=== PATIENT | male | born 1950 | race Caucasian/White ===

== ENCOUNTER 2018-07-04 13:04 | Inpatient (IN) | payer OTHER ==
[2018-07-04 15:58] VITALS: BMI 33.7
--- NOTE | 2018-07-04 18:47 | HP ---
CIWA Score Nausea/Vomitin-Mild Nausea/No Vomiting Muscle Tremors: 4-Moderate,w/Arms Extend Anxiety: 4-Mod. Anxious/Guarded Agitation: 1-Slight > Activity Paroxysmal Sweats: 2 Orientation: 0-Oriented Tacttile Disturbances: 0-None Auditory Disturbances: 0-None Visual Disturbances: 2-Mild Sensitivity Headache: 2-Mild CIWA-Ar Total Score: 16 - Admission Criteria OASAS Guidelines: Admission for Medically Managed Detox: Requires at least one of the followin. CIWA greater than 12 2. Seizures within the past 24 hours 3. Delirium tremens within the past 24 hours 4. Hallucinations within the past 24 hours 5. Acute intervention needed for co occurring medical disorder 6. Acute intervention needed for co occurring psychiatric disorder 7. Severe withdrawal that cannot be handled at a lower level of care (continued vomiting, continued diarrhea, abnormal vital signs) requiring intravenous medication and/or fluids 8. Patient presents the following: CIWA greater than 12 Admission Criteria Met: Admission criteria met Admission ROS S - HPI Allergies/Adverse Reactions: Allergies Allergy/AdvReac Type Severity Reaction Status Date / Time No Known Allergies Allergy Verified 07/04/18 18:10 History of Present Illness: patient here requesting detox from etoh use , reports 1/5 /day x 3-4 years, prior sobriety x 30 years , reports current symptoms as above , tremors if not drinking , starts drinking in the mornings upon awakening , + driving while intoxicated , denies DUI/ DWI / MVA . [facility] XAVI 0.03 , latest use this morning . utox : neg tobacco : denies PMHx / PSHx : bronchitis , DM , hTN Psych : depression , denies SI / HI Exam Limitations: Clinical Condition - Ebola screening Have you traveled outside of the country in the last 21 days: No Have you had contact with anyone from an Ebola affected area: No Have you been sick,other than usual withdrawal symptoms: No Do you have a fever: No - Review of Systems Constitutional: See HPI EENT: reports: Other (glasses- bifocals , denies dysphagia , own teeth) Respiratory: reports: Cough (reprots cough x 2 weeks) Cardiac: reports: No Symptoms Reported GI: reports: See HPI : reports: No Symptoms Reported Musculoskeletal: reports: Back Pain, Other (reports h/o spinal stenosis w/ neuropathy) Integumentary: reports: Rash (natalia UE / LE areas of ecchymosis) Neuro: reports: Numbness, Paresthesia (natalia feet), Pre-Existing Deficit, Tremors , Unsteady Gait Endocrine: reports: See HPI (DM on meds Metformin) Hematology: reports: Easy [place] Psychiatric: reports: Orientated x3, Depressed Patient History - Patient Medical History Hx Asthma: No Hx Chronic Obstructive Pulmonary Disease (COPD): No Hx Cardiac Disorders: No Hx Hypertension: Yes (on meds.) Hx Seizures: No Hx Diabetes: Yes (Type II) Hx Gastrointestinal Disorders: No Hx Genitourinary Disorders: No Hx Sexually Transmitted Disorders: No Hx Renal Disease (ESRD): No Hx Depression: Yes Hx Suicide Attempt: No Hx Schizophrenia: No - Patient Surgical History Past Surgical History: No - PPD History Previous Implant?: Yes Documented Results: Negative w/o proof Implanted On Prior [facility] Admission?: No - Smoking Cessation Smoking history: Former smoker Have you smoked in the past 12 months: No If you are a former smoker, when did you quit?: 30 yrs ago Hx Chewing Tobacco Use: No Initiated information on smoking cessation: No - Substances Abused Alcohol Route: Oral Frequency: Daily Amount used: fifth of rum Age of first use: 17 Date of Last Use: 07/04/18 Family Disease History - Family Disease History Family History: Denies Admission Physical Exam [facility] - Vital Signs Vital Signs: Vital Signs - 24 hr 07/04/18 15:53 Temperature 98.5 F Pulse Rate 112 H Respiratory 20 Rate Blood Pressure 133/73 - Physical General Appearance: Yes: Moderate Distress, Tremorous, Sweating, Anxious HEENTM: Yes: EOMI, Hearing grossly Normal, Normocephalic, Normal Voice Respiratory: Yes: Chest Non-Tender, Lungs Clear, Normal Breath Sounds Neck: Yes: No masses,lesions,Nodules, Trachea in good position Breast: Yes: Breast Exam Deferred Cardiology: Yes: Regular Rhythm, Regular Rate, S1, S2, Tachycardia Abdominal: Yes: Normal Bowel Sounds, Soft Genitourinary: Yes: Within Normal Limits Back: Yes: Normal Inspection Musculoskeletal: Yes: Back pain, Other (unsteady gait - staggering) Extremities: Yes: Normal Capillary Refill, Tremors Neurological: Yes: Fully Oriented, Alert, Motor Strength 5/5 Integumentary: Yes: Other (petechiae natalia UE / LE) - Diagnostic (1) Alcohol dependence Current Visit: Yes Status: Acute Qualifiers: Substance use status: in withdrawal BHS Breath Alcohol Content Breath Alcohol Content: 0.003 Urine Drug Screen - Results Drug Screen Negative: Yes
[2018-07-04] MEDS ORDERED: MAGNESIUM CITRATE 300 ML BOTTLE PO PRN (18:51)
[2018-07-04] MEDS ORDERED: IBUPROFEN 400 MG TABLET (FP) PO PRN (18:51)
[2018-07-04] MEDS ORDERED: MAG HYDROX/AL HYDROX/SIMETH 30 ML UNIT-DOSE CUP PO PRN (18:51)
[2018-07-04] MEDS ORDERED: P-EPHED 60MG/TRIPROLIDI 2.5MG TABLET PO PRN (18:51)
[2018-07-04] MEDS ORDERED: MAGNESIUM HYDROX 2400MG/30ML ORAL SUSPENSION 30 ML CUP PO PRN (18:51)
[2018-07-04] MEDS ORDERED: ACETAMINOPHEN 325 MG TABLET (FP) PO PRN (18:51)
[2018-07-04] MEDS ORDERED: chlordiazePOXIDE HCL 25 MG CAPSULE PO PRN (18:51)
[2018-07-04] MEDS ORDERED: MENTHOL/PHENOL 1 EACH UD MM PRN (18:51)
[2018-07-04] MEDS ORDERED: guaiFENesin/D-METHORPHAN HB 10 ML UNIT-DOSE CUPS PO PRN (18:51)
[2018-07-04] MEDS: THIAMINE HCL 100 MG TABLET (FP) PO SCH (22:14)
[2018-07-04] MEDS: MELATONIN 5 MG TABLETS PO PRN (22:15)
[2018-07-04] MEDS: chlordiazePOXIDE HCL 25 MG CAPSULE PO SCH (22:15)
[2018-07-04] MEDS ORDERED: cloNIDine HCL 0.1 MG TABLET PO ONE (23:08)
[2018-07-05] MEDS: chlordiazePOXIDE HCL 25 MG CAPSULE PO SCH ×4 (05:44→22:27)
[2018-07-05] MEDS: metFORMIN HCL 500 MG TABLET (FP) PO SCH (08:14)
[2018-07-05 09:55] LABS: HEMATOCRIT 32.7 % (35.4-49); HEMOGLOBIN 10.7 GM/dL (11.7-16.9); MCH 32.5 pg (25.7-33.7); MCHC 32.9 g/dl (32.0-35.9); MEAN CELL VOLUME 98.8 fl (80-96); MEAN PLT VOLUME 8.1 fl (7.5-11.1); PLATELET COUNT 96 K/MM3 (134-434); RDW 16.8 % (11.9-15.9); WHITE BLOOD COUNT 2.9 K/mm3 (4.0-10.0)
[2018-07-05] MEDS: PRENATAL VITAMINS W/ FOLIC ACID TABLET (FP) PO SCH (10:30)
[2018-07-05] MEDS: LOSARTAN POTASSIUM 50 MG TABLET (FP) PO SCH (10:30)
[2018-07-05] MEDS ORDERED: LOPERAMIDE HCL 2 MG CAPSULE PO PRN (10:34)
[2018-07-05 10:54] LABS: ALBUMIN 3.1 g/dl (3.4-5.0); ALK PHOS 79 U/L (45-117); ANION GAP 8 MMOL/L (8-16); BILIRUBIN,TOTAL 0.6 mg/dL (0.2-1); BLOOD UREA NITROGEN 16 mg/dL (7-18); CALCIUM 8.3 mg/dL (8.5-10.1); CHLORIDE 98 mmol/L (98-107); CO2 30 mmol/L (21-32); CREATININE 0.7 mg/dL (0.55-1.3); GLUCOSE,RANDOM 126 mg/dL (74-106); POTASSIUM 3.3 mmol/L (3.5-5.1); SGOT/AST 62 U/L (15-37); SGPT/ALT 48 U/L (13-61); SODIUM 137 mmol/L (136-145); TOT PROT 6.2 g/dl (6.4-8.2)
--- NOTE | 2018-07-05 14:13 | PN ---
[facility] CIWA - CIWA Score Nausea/Vomitin-No Nausea/No Vomiting (DIARRHEA) Muscle Tremors: 4-Moderate,w/Arms Extend Anxiety: 4-Mod. Anxious/Guarded Agitation: 4-Moderately Restless Paroxysmal Sweats: 1-Minimal Palms Moist Orientation: 0-Oriented Tacttile Disturbances: 0-None Auditory Disturbances: 0-None Visual Disturbances: 0-None Headache: 0-None Present CIWA-Ar Total Score: 13 BHS Progress Note (SOAP) Subjective: ANXIETY,TREMORS, IRRITABILITY, DIARRHEA. Objective: 07/05/18 14:11 Vital Signs 07/05/18 07/05/18 06:20 10:34 Temperature 96.8 F L 98.7 F Pulse Rate 83 104 H Respiratory 18 20 Rate Blood Pressure 155/82 172/83 H Laboratory Tests 07/05/18 07/05/18 07/05/18 05:42 08:00 08:00 WBC 2.9 L RBC 3.30 L Hgb 10.7 L Hct 32.7 L MCV 98.8 H MCH 32.5 MCHC 32.9 RDW 16.8 H Plt Count 96 L MPV 8.1 Sodium 137 Potassium 3.3 L Chloride 98 Carbon Dioxide 30 Anion Gap 8 BUN 16 Creatinine 0.7 Creat Clearance w eGFR > 60 POC Glucometer 111 Random Glucose 126 H Calcium 8.3 L Total Bilirubin 0.6 AST 62 H ALT 48 Alkaline Phosphatase 79 Total Protein 6.2 L Albumin 3.1 L RPR Titer 07/05/18 08:00 WBC RBC Hgb Hct MCV MCH MCHC RDW Plt Count MPV Sodium Potassium Chloride Carbon Dioxide Anion Gap BUN Creatinine Creat Clearance w eGFR POC Glucometer Random Glucose Calcium Total Bilirubin AST ALT Alkaline Phosphatase Total Protein Albumin RPR Titer Nonreactive K+ = 3.3 H/H 10.7/32.7 PL 96 WBC 2.9 Assessment: 07/05/18 14:13 WITHDRAWAL SX HYPOKALEMIA ANEMIA THROMBOCYTOPENIA Plan: CONTINUE DETOX KDUR 20 MEQ PO BID FEOSOL 325 MG PO DAILY REPEAT CBC AND CMP ON 07/07/18 INCREASE PO FLUIDS
--- NOTE | 2018-07-05 14:58 | CONSULT ---
[facility] Psychiatric Consult - Data Date of interview: 07/05/18 Admission source: [facility] Identifying data: First admission to [facility] for this 68 y/o male currently undergoing detoxification treatment, on , for alcohol dependence. Patient is , a father of three, domiciled, retired and supported on Social Security benefits. Substance Abuse History: Discussed with patient in this session. Details in current [facility] report : Smoking history: Former smoker. Have you smoked in the past 12 months: No. If you are a former smoker, when did you quit?: 30 yrs ago. Hx Chewing Tobacco Use: No. Initiated information on smoking cessation: No. - Substances Abused. Alcohol. Route: Oral. Frequency: Daily. Amount used: fifth of rum. Age of first use: 17. Date of Last Use: 07/04/18 Medical History: Spinal stenosis, diabetes mellitus, hypertension, chronic lumbar pain and obesity. Psychiatric History: Patient denies history of psychiatric hospitalizations. Diagnosed with MDD and placed on a combination of fluoxetine 10 mg/day + bupropion XL 150 mg/day by his primary care provider (medications confirmed by pharmacy claims of 05/02/18 + 06/24/18 at [facility]). Not taken for more than two weeks as per self-report. Mr Brit states that he does not " mix alcohol with psychiatric medications ". Declines to resume these drugs during this hospital course but he contemplates resuming them at home after discharge from [facility] (refills available). Patient denies history of suicide attempts. Physical/Sexual Abuse/Trauma History: Patient denies. Additional Comment: Drug Screen is negative. Mental Status Exam - Mental Status Exam Alert and Oriented to: Time, Place, Person Cognitive Function: Good Patient Appearance: Disheveled Mood: Withdrawn Affect: Appropriate, Normal Range Patient Behavior: Fatigued, Appropriate, Cooperative Speech Pattern: Clear Voice Loudness: Normal Thought Process: Intact, Goal Oriented Thought Disorder: Not Present Hallucinations: Denies Suicidal Ideation: Denies Homicidal Ideation: Denies Insight/Judgement: Fair Sleep: Well Appetite: Good Muscle strength/Tone: Normal Gait/Station: Other (slow gait) Psychiatric Findings - Problem List ([place] 1, 2,3) (1) Alcohol dependence with uncomplicated withdrawal Current Visit: Yes Status: Acute (2) Alcohol-induced mood disorder Current Visit: Yes Status: Suspected (3) Depressive disorder Current Visit: Yes Status: Chronic Comment: As per self-report. Treated by primary care physician. On medications. Non-compliant for weeks. (4) Non-compliant patient Current Visit: Yes Status: Chronic - Initial Treatment Plan Initial Treatment Plan: Psychoeducation. Sleep hygiene. Detoxification. AA meetings. Relapse prevention discussed with the patient. Motivational rounds. Observation.
[2018-07-05] MEDS ORDERED: POTASSIUM CHLORIDE TABS 20 MEQ TABLET.ER (FP) PO ONE (15:30)
[2018-07-05] MEDS: MELATONIN 5 MG TABLETS PO PRN (22:27)
[2018-07-05] MEDS: THIAMINE HCL 100 MG TABLET (FP) PO SCH (22:27)
[2018-07-05] MEDS: POTASSIUM CHLORIDE TABS 20 MEQ TABLET.ER (FP) PO SCH (22:27)
[2018-07-06] MEDS: chlordiazePOXIDE HCL 25 MG CAPSULE PO SCH ×3 (05:41→17:41)
[2018-07-06] MEDS: metFORMIN HCL 500 MG TABLET (FP) PO SCH (07:02)
[2018-07-06] MEDS: POTASSIUM CHLORIDE TABS 20 MEQ TABLET.ER (FP) PO SCH ×2 (10:57→22:11)
[2018-07-06] MEDS: LOSARTAN POTASSIUM 50 MG TABLET (FP) PO SCH (10:57)
[2018-07-06] MEDS: FERROUS SO4 325 MG TABLET (FP) PO SCH (10:58)
[2018-07-06] MEDS: PRENATAL VITAMINS W/ FOLIC ACID TABLET (FP) PO SCH (10:58)
--- NOTE | 2018-07-06 16:34 | PN ---
S CIWA - CIWA Score Nausea/Vomitin Muscle Tremors: 3 Anxiety: 3 Agitation: 3 Paroxysmal Sweats: 3 Orientation: 0-Oriented Tacttile Disturbances: 0-None Auditory Disturbances: 0-None Visual Disturbances: 0-None Headache: 0-None Present CIWA-Ar Total Score: 14 BHS Progress Note (SOAP) Subjective: Anxious, interrupted sleep Objective: 07/06/18 16:31 Last Vital Signs Temp Pulse Resp BP Pulse Ox 97.4 F L 98 H 20 123/78 07/06/18 15:16 07/06/18 15:16 07/06/18 15:16 07/06/18 15:16 Laboratory Tests 07/05/18 07/05/18 07/05/18 05:42 08:00 08:00 WBC 2.9 L RBC 3.30 L Hgb 10.7 L Hct 32.7 L MCV 98.8 H MCH 32.5 MCHC 32.9 RDW 16.8 H Plt Count 96 L MPV 8.1 Sodium 137 Potassium 3.3 L Chloride 98 Carbon Dioxide 30 Anion Gap 8 BUN 16 Creatinine 0.7 Creat Clearance w eGFR > 60 POC Glucometer 111 Random Glucose 126 H Calcium 8.3 L Total Bilirubin 0.6 AST 62 H ALT 48 Alkaline Phosphatase 79 Total Protein 6.2 L Albumin 3.1 L RPR Titer 07/05/18 07/06/18 08:00 05:40 WBC RBC Hgb Hct MCV MCH MCHC RDW Plt Count MPV Sodium Potassium Chloride Carbon Dioxide Anion Gap BUN Creatinine Creat Clearance w eGFR POC Glucometer 120 Random Glucose Calcium Total Bilirubin AST ALT Alkaline Phosphatase Total Protein Albumin RPR Titer Nonreactive Labs reviewed: K 3.3, pancytopenia, elevated glucose due to DM Assessment: 07/06/18 16:32 Withdrawal symptoms Noted with hypokalemia and pancytopenia Plan: Continue detox Encouraged PO water intake Hypokalemia: replenished, follow up on repeated K (already ordered for CMP) Pancytopenia: follow up with PCP for monitoring
[2018-07-06] MEDS ORDERED: cloNIDine HCL 0.1 MG TABLET PO ONE (20:51)
--- NOTE | 2018-07-06 20:54 | PN ---
BHS Progress Note Note: Patient's blood pressure is B/P 164/95. Patient is asymptomatic Vital Signs Temperature 98.7 F 07/06/18 20:45 Pulse Rate 98 H 07/06/18 20:45 Respiratory Rate 20 07/06/18 20:45 Blood Pressure 164/95 07/06/18 20:45 O2 Sat by Pulse Oximetry (%) Action: Clonidine 0.1mg tablet oral ordered
[2018-07-06] MEDS: chlordiazePOXIDE 5 MG CAPSULE PO SCH (22:11)
[2018-07-06] MEDS: THIAMINE HCL 100 MG TABLET (FP) PO SCH (22:11)
[2018-07-06] MEDS: MELATONIN 5 MG TABLETS PO PRN (22:11)
[2018-07-07] MEDS: chlordiazePOXIDE 5 MG CAPSULE PO SCH ×2 (05:32→10:08)
[2018-07-07] MEDS: metFORMIN HCL 500 MG TABLET (FP) PO SCH (07:12)
[2018-07-07 09:23] VITALS: BP 145/77; PULSE 76; TEMP 98.2
--- NOTE | 2018-07-07 09:28 | DS ---
[facility] Detox Discharge Summary Admission Date: 07/04/18 Discharge Date: 07/07/18 - History Present History: Alcohol Dependence Additional Comments: 68 years old male admitted on 07/04/18 for alcohol withdrawal stabilization completed detox regimen alert [facility] services - Physical Exam Results Vital Signs: Vital Signs Temperature 98.2 F 07/07/18 09:22 Pulse Rate 76 07/07/18 09:22 Respiratory Rate 18 07/07/18 09:22 Blood Pressure 145/77 07/07/18 09:22 O2 Sat by Pulse Oximetry (%) Pertinent Admission Physical Exam Findings: alcohol withdrawal sx Laboratory Last Values WBC 3.4 K/mm3 (4.0-10.0) L 07/07/18 07:00 RBC 3.28 M/mm3 (4.00-5.60) L 07/07/18 07:00 Hgb 11.4 GM/dL (11.7-16.9) L 07/07/18 07:00 Hct 32.2 % (35.4-49) L 07/07/18 07:00 MCV 98.0 fl (80-96) H 07/07/18 07:00 MCH 34.9 pg (25.7-33.7) H 07/07/18 07:00 MCHC 35.6 g/dl (32.0-35.9) 07/07/18 07:00 RDW 16.3 % (11.9-15.9) H 07/07/18 07:00 Plt Count 136 K/MM3 (134-434) D 07/07/18 07:00 MPV 8.2 fl (7.5-11.1) 07/07/18 07:00 Absolute Neuts (auto) 1.8 K/mm3 (1.5-8.0) 07/07/18 07:00 Neutrophils % 53.7 % (42.8-82.8) 07/07/18 07:00 Lymphocytes % 32.1 % (8-40) 07/07/18 07:00 Monocytes % 8.7 % (3.8-10.2) 07/07/18 07:00 Eosinophils % 5.1 % (0-4.5) H 07/07/18 07:00 Basophils % 0.4 % (0-2.0) 07/07/18 07:00 Nucleated RBC % 0 % (0-0) 07/07/18 07:00 Sodium 139 mmol/L (136-145) 07/07/18 07:00 Potassium 4.1 mmol/L (3.5-5.1) 07/07/18 07:00 Chloride 103 mmol/L (98-107) 07/07/18 07:00 Carbon Dioxide 29 mmol/L (21-32) 07/07/18 07:00 Anion Gap 7 MMOL/L (8-16) L 07/07/18 07:00 BUN 15 mg/dL (7-18) 07/07/18 07:00 Creatinine 0.8 mg/dL (0.55-1.3) 07/07/18 07:00 Creat Clearance w eGFR > 60 (>60) 07/07/18 07:00 POC Glucometer 135 UNITS (80-120) 07/07/18 05:34 Random Glucose 146 mg/dL (74-106) H 07/07/18 07:00 Calcium 8.9 mg/dL (8.5-10.1) 07/07/18 07:00 Total Bilirubin 0.5 mg/dL (0.2-1) 07/07/18 07:00 AST 51 U/L (15-37) H 07/07/18 07:00 ALT 47 U/L (13-61) 07/07/18 07:00 Alkaline Phosphatase 82 U/L (45-117) 07/07/18 07:00 Total Protein 6.2 g/dl (6.4-8.2) L 07/07/18 07:00 Albumin 3.2 g/dl (3.4-5.0) L 07/07/18 07:00 RPR Titer Nonreactive (NONREACTIVE) 07/05/18 08:00 lab noted - Treatment Hospital Course: Detox Protocol Followed, Detoxed Safely, Responded well, Discharged Condition Good, Rehab Referral Accepted Patient has Accepted a Rehab Referral to: [facility] services - Medication Discharge Medications: Ambulatory Orders Fluoxetine HCl [Prozac -] 40 mg PO DAILY 07/04/18 Losartan Potassium [Cozaar] 100 mg PO DAILY 07/04/18 Metformin HCl [Glucophage] 1,000 mg PO DAILY 07/04/18 Zolpidem Tartrate [Ambien] 10 mg PO HS 07/04/18 - Diagnosis (1) Alcohol dependence with uncomplicated withdrawal Current Visit: Yes Status: Acute (2) Alcohol-induced mood disorder Current Visit: Yes Status: Suspected (3) Hypertension Current Visit: Yes Status: Chronic Qualifiers: Hypertension type: essential hypertension Qualified Code(s): I10 - Essential (primary) hypertension - AMA Did Patient Leave Against Medical Advice: No
[2018-07-07] MEDS: FERROUS SO4 325 MG TABLET (FP) PO SCH (10:07)
[2018-07-07] MEDS: PRENATAL VITAMINS W/ FOLIC ACID TABLET (FP) PO SCH (10:07)
[2018-07-07] MEDS: POTASSIUM CHLORIDE TABS 20 MEQ TABLET.ER (FP) PO SCH (10:07)
[2018-07-07 10:19] LABS: BASO % 0.4 % (0-2.0); EOS % 5.1 % (0-4.5); HEMATOCRIT 32.2 % (35.4-49); HEMOGLOBIN 11.4 GM/dL (11.7-16.9); LYMPH % 32.1 % (8-40); MCH 34.9 pg (25.7-33.7); MCHC 35.6 g/dl (32.0-35.9); MEAN PLT VOLUME 8.2 fl (7.5-11.1); MONO % 8.7 % (3.8-10.2); NEUT % 53.7 % (42.8-82.8); PLATELET COUNT 136 K/MM3 (134-434); RBC 3.28 M/mm3 (4.00-5.60); RDW 16.3 % (11.9-15.9); WHITE BLOOD COUNT 3.4 K/mm3 (4.0-10.0)
[2018-07-07 10:32] LABS: ALBUMIN 3.2 g/dl (3.4-5.0); ALK PHOS 82 U/L (45-117); ANION GAP 7 MMOL/L (8-16); BILIRUBIN,TOTAL 0.5 mg/dL (0.2-1); BLOOD UREA NITROGEN 15 mg/dL (7-18); CALCIUM 8.9 mg/dL (8.5-10.1); CHLORIDE 103 mmol/L (98-107); CO2 29 mmol/L (21-32); CREATININE 0.8 mg/dL (0.55-1.3); GLUCOSE,RANDOM 146 mg/dL (74-106); POTASSIUM 4.1 mmol/L (3.5-5.1); SGOT/AST 51 U/L (15-37); SGPT/ALT 47 U/L (13-61); SODIUM 139 mmol/L (136-145); TOT PROT 6.2 g/dl (6.4-8.2)
[2018-07-07] MEDS: LOSARTAN POTASSIUM 50 MG TABLET (FP) PO SCH (11:19)
[2018-07-07] MEDS ORDERED: chlordiazePOXIDE HCL 10 MG CAPSULE PO SCH (23:00)
== END 2018-07-07 11:26 | disposition home or self-care (01) | DRG 897 ==
LOC: YASAS 13:04 → Y3N 18:42
PROC: HZ2ZZZZ Detoxification Services for Substance Abuse Treatment (ICD-10-PCS; principal; 2018-07-04)
DX: F10.230 Alcohol dependence with withdrawal, uncomplicated (principal); D61.818 Other pancytopenia; F10.24 Alcohol dependence with alcohol-induced mood disorder; F32.9 Major depressive disorder, single episode, unspecified; E87.6 Hypokalemia; I10 Essential (primary) hypertension; E11.9 Type 2 diabetes mellitus without complications; Z79.84 Long term (current) use of oral hypoglycemic drugs; D50.9 Iron deficiency anemia, unspecified
CPT/HCPCS: 36415; 80053; 82962; 85025; 85027; 86593; J0735

== ENCOUNTER 2018-12-22 08:10 | Inpatient (IN) | payer OTHER ==
--- NOTE | 2018-12-22 09:26 | HP ---
CIWA Score Nausea/Vomitin Muscle Tremors: 2 Anxiety: 2 Agitation: 2 Paroxysmal Sweats: 1-Minimal Palms Moist Orientation: 0-Oriented Tacttile Disturbances: 1-Very Mild Itch/Numbness Auditory Disturbances: 1-Very Mild Visual Disturbances: 0-None Headache: 2-Mild CIWA-Ar Total Score: 13 - Admission Criteria OASAS Guidelines: Admission for Medically Managed Detox: Requires at least one of the followin. CIWA greater than 12 2. Seizures within the past 24 hours 3. Delirium tremens within the past 24 hours 4. Hallucinations within the past 24 hours 5. Acute intervention needed for co occurring medical disorder 6. Acute intervention needed for co occurring psychiatric disorder 7. Severe withdrawal that cannot be handled at a lower level of care (continued vomiting, continued diarrhea, abnormal vital signs) requiring intravenous medication and/or fluids 8. Admission ROS BHS - HPI Chief Complaint: i need help to stop drinking alcohol Allergies/Adverse Reactions: Allergies Allergy/AdvReac Type Severity Reaction Status Date / Time No Known Allergies Allergy Verified 12/22/18 08:41 History of Present Illness: this 68 years old male with alcohol dependence,seeking detox,withdrawal symptom last detox [facility] 07/04/18 to 07/07/18 but keep relapsing history of hypertension,type 2 diabetes mellitus hepatitis c treated low back pain,sciatica neuropathy longest period of sobriety 30 years depression and insomnia may go to rehab after detox Exam Limitations: No Limitations - Ebola screening Have you traveled outside of the country in the last 21 days: No Have you had contact with anyone from an Ebola affected area: No - Review of Systems Constitutional: Loss of Appetite, Night Sweats, Changes in sleep EENT: reports: Nose Congestion Respiratory: reports: No Symptoms reported Cardiac: reports: No Symptoms Reported GI: reports: Nausea, Poor Appetite, Poor Fluid Intake : reports: No Symptoms Reported Musculoskeletal: reports: Back Pain, Muscle Pain Integumentary: reports: Dryness Neuro: reports: Tremors Endocrine: reports: No Symptoms Reported Hematology: reports: No Symptoms Reported Psychiatric: reports: No Sypmtoms Reported, Judgement Intact, Mood/Affect Appropiate, Orientated x3, Depressed (insomnia) Other Systems: Reviewed and Negative Patient History - Patient Medical History Hx Anemia: No Hx Asthma: No Hx Chronic Obstructive Pulmonary Disease (COPD): No Hx Cardiac Disorders: No Hx Hypertension: Yes (on meds.) Hx Hypercholesterolemia: No Hx Pacemaker: No HX Cerebrovascular Accident: No Hx Seizures: No Hx Dementia: No Hx Diabetes: Yes (Type II on metformin) Hx Gastrointestinal Disorders: No Hx Liver Disease: Yes (hepatitis c) Hx Genitourinary Disorders: No Hx Sexually Transmitted Disorders: No Hx Renal Disease (ESRD): No Hx Thyroid Disease: No Hx Human Immunodeficiency Virus (HIV): No (never been tested) Hx Hepatitis C: Yes (treated) Hx Depression: Yes Hx Suicide Attempt: No Hx Bipolar Disorder: No Hx Schizophrenia: No Other Medical History: insomnia,no suicidl,no homicidal,low back apin sciatica - Patient Surgical History Past Surgical History: No - PPD History Previous Implant?: Yes Implanted On Prior [facility] Admission?: No PPD to be Administered?: Yes - Smoking Cessation Smoking history: Former smoker Have you smoked in the past 12 months: No If you are a former smoker, when did you quit?: 30 yrs ago Hx Chewing Tobacco Use: No Initiated information on smoking cessation: Yes 'Breaking Loose' booklet given: 12/22/18 - Substance & Tx. History Hx Alcohol Use: Yes Hx Substance Use: No Substance Use Type: Alcohol Hx Substance Use Treatment: Yes ([facility] 07/04/18 to 07/07/18) - Substances abused Alcohol Substance route: Oral Frequency: Daily Amount used: 2x12 packs 12 ozs of beer, 1.5 pints of Barcardi Age of first use: 19 Date of last use: 12/21/18 Family Disease History - Family Disease History Family History: Denies Admission Physical Exam [facility] - Vital Signs Vital Signs: Vital Signs - 24 hr 12/22/18 08:47 Temperature 98.5 F Pulse Rate 94 H Respiratory 16 Rate Blood Pressure 150/85 - Physical General Appearance: Yes: Moderate Distress, Tremorous, Irritable, Sweating, Anxious HEENTM: Yes: Normal ENT Inspection, [place], Pharynx Normal Respiratory: Yes: Lungs Clear, Normal Breath Sounds, No Respiratory Distress Neck: Yes: Within Normal Limits, Supple, Trachea in good position Breast: Yes: Within Normal Limits Cardiology: Yes: Within Normal Limits, Regular Rhythm, Regular Rate, S1, S2 Abdominal: Yes: Within Normal Limits, Normal Bowel Sounds, Non Tender, Flat Genitourinary: Yes: Within Normal Limits Back: Yes: Muscle Spasm Musculoskeletal: Yes: Back pain, Muscle Pain Extremities: Yes: Tremors Neurological: Yes: Within Normal Limits, 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, Fully Oriented, Alert, Motor Strength 5/5 Integumentary: Yes: Dry Lymphatic: Yes: Within Normal Limits - Diagnostic (1) DM2 (diabetes mellitus, type 2) Status: Chronic (2) Alcohol dependence with uncomplicated withdrawal Status: Acute (3) Hypertension Status: Chronic Qualifiers: Hypertension type: essential hypertension Qualified Code(s): I10 - Essential (primary) hypertension (4) Depression Status: Acute (5) Insomnia Status: Acute (6) Low back pain Status: Chronic (7) Sciatica Status: Chronic (8) Neuropathy Status: Chronic Cleared for Admission S - Detox or Rehab [facility] Level of Care: Medically Managed Detox Regimen/Protocol: Librium Breathalyzer - Breathalyzer Breathalyzer: 0 Urine Drug Screen - Test Device Lot number: [id number] Expiration date: 08/28/20 - Control Is test valid?: Yes - Results Drug screen NEGATIVE: No Urine drug screen results: THC-Marijuana Inpatient Rehab Admission - Rehab Decision to Admit Inpatient rehab admission?: No
[2018-12-22] MEDS ORDERED: hydrOXYzine PAMOATE 25 MG CAPSULE (FP) PO PRN (09:41)
[2018-12-22] MEDS ORDERED: chlordiazePOXIDE HCL 25 MG CAPSULE PO PRN (09:41)
[2018-12-22] MEDS ORDERED: BISMUTH SUBSALICYLATE 262 MG/15 ML BTL PO PRN (09:41)
[2018-12-22] MEDS ORDERED: METHOCARBAMOL 500 MG TABLET PO PRN (09:41)
[2018-12-22] MEDS ORDERED: IBUPROFEN 400 MG TABLET (FP) PO PRN (09:41)
[2018-12-22] MEDS ORDERED: MAGNESIUM CITRATE 300 ML BOTTLE PO PRN (09:41)
[2018-12-22] MEDS ORDERED: MAG HYDROX/AL HYDROX/SIMETH 30 ML UNIT-DOSE CUP PO PRN (09:41)
[2018-12-22] MEDS ORDERED: ACETAMINOPHEN 325 MG TABLET (FP) PO PRN ×2 (09:41)
[2018-12-22] MEDS ORDERED: MELATONIN 5 MG TABLETS PO PRN (09:41)
[2018-12-22] MEDS ORDERED: MAGNESIUM HYDROX 2400MG/30ML ORAL SUSPENSION 30 ML CUP PO PRN (09:41)
[2018-12-22] MEDS ORDERED: MENTHOL/PHENOL 1 EACH UD MM PRN (09:41)
[2018-12-22] MEDS ORDERED: LOSARTAN POTASSIUM 50 MG TABLET (FP) PO SCH (10:00)
[2018-12-22] MEDS ORDERED: PRENATAL VITAMINS W/ FOLIC ACID TABLET (FP) PO SCH (10:00)
[2018-12-22] MEDS: chlordiazePOXIDE HCL 25 MG CAPSULE PO SCH ×2 (11:37→18:50)
[2018-12-22 12:14] LABS: HEMATOCRIT 39.7 % (35.4-49); HEMOGLOBIN 13.1 GM/dL (11.7-16.9); MCH 33.7 pg (25.7-33.7); MCHC 33.1 g/dl (32.0-35.9); MEAN CELL VOLUME 101.9 fl (80-96); MEAN PLT VOLUME 8.3 fl (7.5-11.1); PLATELET COUNT 156 K/MM3 (134-434); RDW 15.9 % (11.9-15.9); WHITE BLOOD COUNT 6.1 K/mm3 (4.0-10.0)
[2018-12-22 12:24] LABS: ALBUMIN 4.2 g/dl (3.4-5.0); BILIRUBIN,TOTAL 1.2 mg/dL (0.2-1); BLOOD UREA NITROGEN 16.9 mg/dL (7-18); CALCIUM 9.1 mg/dL (8.5-10.1); CREATININE 1.1 mg/dL (0.55-1.3); POTASSIUM 4.2 mmol/L (3.5-5.1); TOT PROT 8.1 g/dl (6.4-8.2)
--- NOTE | 2018-12-22 14:48 | CONSULT ---
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 Refer to addiction counselor's summary for further information Medical History: Significant for spinal stenosis, diabetes mellitus, hypertension, chronic lumbar pain/sciatica, neuropathy and obesity. Psychiatric History: Patient reports being diagnosed with MDD more than 10 years ago by his primary care physicain and started on Wellbutrin XL 150mg/day and Prozac 10 mg/day. 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 Reports that he was tried on different medications since. He reports hat he stopped taking medication 3 months ago and has no recollection of the name of medications he was taking. Denies history of psychiatric hospitalizations or suicidal attempt. At present, reports feeling depressed and sleeping poorly Physical/Sexual Abuse/Trauma History: Denies history of emotional, physical or sexual abuse as well as DV relationship. No service Additional Comment: Denies criminal history Mental Status Exam - Mental Status Exam Alert and Oriented to: Time, Place, Person Cognitive Function: Fair Patient Appearance: Disheveled Mood: Depressed Affect: Appropriate Patient Behavior: Cooperative Speech Pattern: Clear Voice Loudness: Normal Thought Process: Intact, Goal Oriented Thought Disorder: Not Present Hallucinations: Denies Suicidal Ideation: Denies Homicidal Ideation: Denies Insight/Judgement: Fair Sleep: Poorly Appetite: Poor Muscle strength/Tone: Normal Gait/Station: Normal Psychiatric Findings - Problem List ([place] 1, 2,3) (1) Depressive disorder Current Visit: Yes Status: Chronic (2) MDD (major depressive disorder) Current Visit: Yes Status: Ruled-out (3) Substance induced mood disorder Current Visit: Yes Status: Acute (4) Substance-induced sleep disorder Current Visit: Yes Status: Acute (5) Alcohol dependence with uncomplicated withdrawal Current Visit: No Status: Acute (6) DM2 (diabetes mellitus, type 2) Current Visit: Yes Status: Chronic (7) Low back pain Current Visit: Yes Status: Chronic (8) Sciatica Current Visit: Yes Status: Chronic (9) Neuropathy Current Visit: Yes Status: Chronic (10) Hypertension Current Visit: No Status: Chronic Qualifiers: Hypertension type: essential hypertension Qualified Code(s): I10 - Essential (primary) hypertension - Initial Treatment Plan Initial Treatment Plan: 1) Start Belsomra 10 mg po HS prn for insomnia. 2) Continue inpatient detoxification
[2018-12-22 16:55] VITALS: BP 147/87; PULSE 96; TEMP 98.1
--- NOTE | 2018-12-22 17:02 | DS ---
[facility] Detox Discharge Summary Admission Date: 12/22/18 Discharge Date: 12/22/18 - History Present History: Alcohol Dependence Pertinent Past History: pt says he has to go home to find out if his blind is OK- she is not answering the phone. Pt states there is no one else to check up on her. Pt states will f/u with PCP this week and will explore with the doctor treatment for alcohol- Revia or campral or disulfiram. - Physical Exam Results Vital Signs: Vital Signs Temperature 98.1 F 12/22/18 16:54 Pulse Rate 96 H 12/22/18 16:54 Respiratory Rate 18 12/22/18 16:54 Blood Pressure 147/87 12/22/18 16:54 O2 Sat by Pulse Oximetry (%) - Medication Discharge Medications: Ambulatory Orders Fluoxetine HCl [Prozac -] 40 mg PO DAILY 07/04/18 Losartan Potassium [Cozaar] 100 mg PO DAILY 07/04/18 Metformin HCl [Glucophage] 1,000 mg PO DAILY 07/04/18 Zolpidem Tartrate [Ambien] 10 mg PO HS 07/04/18 - AMA Did Patient Leave Against Medical Advice: Yes
[2018-12-22] MEDS ORDERED: THIAMINE HCL 100 MG TABLET (FP) PO SCH (22:00)
[2018-12-22] MEDS ORDERED: SUVOREXANT 10 MG TABLET PO PRN (22:00)
[2018-12-23] MEDS ORDERED: metFORMIN HCL 500 MG TABLET (FP) PO SCH (07:00)
[2018-12-23] MEDS ORDERED: chlordiazePOXIDE HCL 25 MG CAPSULE PO SCH (11:00)
[2018-12-23] MEDS ORDERED: PNEUMOC 13-VAL CONJ-DIP CRM/PF 0.5 ML DISP.SYRIN IM ONE (12:00)
[2018-12-23] MEDS ORDERED: PNEUMOCOCCAL 23 VACCINE 0.5 ML VIAL IM ONE (12:00)
[2018-12-24] MEDS ORDERED: chlordiazePOXIDE HCL 10 MG CAPSULE PO PRN (11:00)
[2018-12-24] MEDS ORDERED: chlordiazePOXIDE HCL 10 MG CAPSULE PO SCH (11:00)
[2018-12-25] MEDS ORDERED: chlordiazePOXIDE HCL 10 MG CAPSULE PO SCH (11:00)
== END 2018-12-22 17:30 | disposition left against medical advice (07) | DRG 894 ==
LOC: YASAS 08:10 → Y6N 10:03
PROVIDERS: ADMIT Surgery; ATTEND Surgery
PROC: HZ2ZZZZ Detoxification Services for Substance Abuse Treatment (ICD-10-PCS; principal; 2018-12-22)
DX: F10.230 Alcohol dependence with withdrawal, uncomplicated (principal); F19.282 Other psychoactive substance dependence with psychoactive substance-induced sleep disorder; F32.9 Major depressive disorder, single episode, unspecified; F19.24 Other psychoactive substance dependence with psychoactive substance-induced mood disorder; I10 Essential (primary) hypertension; E11.9 Type 2 diabetes mellitus without complications; G62.9 Polyneuropathy, unspecified; M54.40 Lumbago with sciatica, unspecified side; G89.29 Other chronic pain; B18.2 Chronic viral hepatitis C; Z87.891 Personal history of nicotine dependence; Z79.84 Long term (current) use of oral hypoglycemic drugs
CPT/HCPCS: 36415; 80053; 82962; 85027; 86593

== ENCOUNTER 2019-01-17 12:41 | Inpatient (IN) | payer OTHER ==
[2019-01-17 13:10] VITALS: BMI 34.1
--- NOTE | 2019-01-17 13:48 | HP ---
COWS - Scale Resting Pulse: 2= AR 101-120 Sweatin=Flushed/Facial Moisture Restless Observation: 1= Difficult to Sit Still Pupil Size: 1= Pupils >than Normal Bone or Joint Aches: 2= Severe Diffuse Aches Runny Nose/ Eye Tearin= Nasal Congestion GI Upset > 30mins: 2= Nausea/Diarrhea Tremor Observation: 2= Slight Tremor Visible Yawning Observation: 1= 1-2x During Session Anxiety or Irritability: 1=Feels Anxious/Irritable Goose Flesh Skin: 3=Piloerection COWS Score: 18 CIWA Score Nausea/Vomitin Muscle Tremors: 2 Anxiety: 2 Agitation: 2 Paroxysmal Sweats: 2 Orientation: 0-Oriented Tacttile Disturbances: 1-Very Mild Itch/Numbness Auditory Disturbances: 1-Very Mild Visual Disturbances: 1-Very Mild Sensitivity Headache: 2-Mild CIWA-Ar Total Score: 15 - Admission Criteria [facility]ASAS Guidelines: Admission for Medically Managed Detox: Requires at least one of the followin. CIWA greater than 12 2. Seizures within the past 24 hours 3. Delirium tremens within the past 24 hours 4. Hallucinations within the past 24 hours 5. Acute intervention needed for co occurring medical disorder 6. Acute intervention needed for co occurring psychiatric disorder 7. Severe withdrawal that cannot be handled at a lower level of care (continued vomiting, continued diarrhea, abnormal vital signs) requiring intravenous medication and/or fluids 8. Patient presents the following: CIWA greater than 12 Admission Criteria Met: Admission criteria met Admission ROS S - [facility] Chief Complaint: I need detox from alcohol and heroin. Allergies/Adverse Reactions: Allergies Allergy/AdvReac Type Severity Reaction Status Date / Time No Known Allergies Allergy Verified 12/22/18 08:41 History of Present Illness: 68 year old man with alcohol dependence presents for detox from alcohol and heroin. He reports previous heroin use, stopped for 2-3 years but has recently restarted using due to increasing pain. His last alcohol detox was on 12/22 but he signed out AMA same day as he couldn't reach his who apparently had been hospitalized for hyperglycemia. Patient has DM, on medication but does not remember name of medication. He stated his doctor gave him samples so there is no pharmacy records to verify, BGM with sliding scale novolog ordered. Exam Limitations: No Limitations - Ebola screening Have you traveled outside of the country in the last 21 days: No (N) Have you had contact with anyone from an Ebola affected area: No Have you been sick,other than usual withdrawal symptoms: Yes Do you have a fever: No - Review of Systems Constitutional: Chills, Loss of Appetite, Malaise, Changes in sleep, Weakness EENT: reports: Blurred Vision, Nose Congestion Respiratory: reports: No Symptoms reported Cardiac: reports: No Symptoms Reported GI: reports: Constipated, Poor Appetite, Poor Fluid Intake, Abdominal cramping : reports: No Symptoms Reported Musculoskeletal: reports: Back Pain, Joint Pain, Muscle Pain, Muscle Weakness Integumentary: reports: Flushing, Lesions Neuro: reports: Headache, Numbness, Tremors, Unsteady Gait Endocrine: reports: No Symptoms Reported Hematology: reports: Anemia Psychiatric: reports: Depressed Other Systems: Reviewed and Negative Patient History - Patient Medical History Hx Anemia: No Hx Asthma: No Hx Chronic Obstructive Pulmonary Disease (COPD): No Hx Cancer: No Hx Cardiac Disorders: No Hx Congestive Heart Failure: No Hx Hypertension: Yes (on meds.) Hx Hypercholesterolemia: No Hx Pacemaker: No HX Cerebrovascular Accident: No Hx Seizures: No Hx Dementia: No Hx Diabetes: Yes (Type II on metformin) Hx Gastrointestinal Disorders: No Hx Liver Disease: Yes (hepatitis c) Hx Genitourinary Disorders: No Hx Sexually Transmitted Disorders: No Hx Renal Disease (ESRD): No Hx Thyroid Disease: No Hx Human Immunodeficiency Virus (HIV): No (never been tested) Hx Hepatitis C: Yes (treated) Hx Depression: Yes Hx Suicide Attempt: No Hx Bipolar Disorder: No Hx Schizophrenia: No - Patient Surgical History Past Surgical History: No - PPD History Previous Implant?: Yes Implanted On Prior [facility] Admission?: Yes Date: 12/24/18 PPD to be Administered?: No - Smoking Cessation Smoking history: Former smoker Have you smoked in the past 12 months: No If you are a former smoker, when did you quit?: 30 yrs ago Hx Chewing Tobacco Use: No Initiated information on smoking cessation: No - Substance & Tx. History Hx Alcohol Use: Yes Hx Substance Use: Yes Substance Use Type: Opiates Hx Substance Use Treatment: Yes - Substances abused Alcohol Substance route: Oral Frequency: Daily Amount used: 2x12 packs 12 ozs of beer, 1.5 pints of Barcardi Age of first use: 19 Date of last use: 01/17/19 Heroin Substance route: Inhalation Frequency: Daily Amount used: 8 bags a day Age of first use: 17 Date of last use: 01/16/19 Family Disease History - Family Disease History Family Disease History: Diabetes: Son Admission Physical Exam S - Vital Signs Vital Signs: Vital Signs - 24 hr 01/17/19 13:06 Temperature 99.3 F Pulse Rate 107 H Respiratory 20 Rate Blood Pressure 135/84 - Physical General Appearance: Yes: Nourished, Mild Distress HEENTM: Yes: Hearing grossly Normal, Normal ENT Inspection, Normocephalic, Normal Voice Respiratory: Yes: Chest Non-Tender, Lungs Clear, No Respiratory Distress, No Accessory Muscle Use Neck: Yes: No masses,lesions,Nodules, Supple Breast: Yes: Breast Exam Deferred Cardiology: Yes: Regular Rhythm, Regular Rate, S1, S2 Abdominal: Yes: Normal Bowel Sounds, Non Tender Genitourinary: Yes: Within Normal Limits Back: Yes: Normal Inspection Musculoskeletal: Yes: Back pain, Muscle weakness, Other (unstaedy gait) Extremities: Yes: Tremors, Pedal Edema Neurological: Yes: Alert, Normal Mood/Affect, Other (in and out of sleep) Integumentary: Yes: Clammy Lymphatic: Yes: Within Normal Limits - Diagnostic (1) Heroin dependence Current Visit: Yes Status: Acute (2) Hepatitis C Current Visit: Yes Status: Chronic Qualifiers: Viral hepatitis chronicity: chronic Hepatic coma status: without hepatic coma Qualified Code(s): B18.2 - Chronic viral hepatitis C (3) Alcohol dependence with uncomplicated withdrawal Current Visit: No Status: Acute (4) DM2 (diabetes mellitus, type 2) Current Visit: No Status: Chronic Qualifiers: Diabetes mellitus detention insulin use: without detention use (5) Hypertension Current Visit: No Status: Chronic Qualifiers: Hypertension type: essential hypertension Qualified Code(s): I10 - Essential (primary) hypertension (6) Low back pain Current Visit: Yes Status: Chronic Qualifiers: Chronicity: chronic Back pain laterality: bilateral Sciatica presence: with sciatica Sciatica laterality: bilateral sciatica Qualified Code(s): M54.42 - Lumbago with sciatica, left side; M54.41 - Lumbago with sciatica, right side; G89.29 - Other chronic pain (7) Sciatica Current Visit: No Status: Chronic Qualifiers: Laterality: bilateral Qualified Code(s): M54.31 - Sciatica, right side; M54.32 - Sciatica, left side (8) MDD (major depressive disorder) Current Visit: No Status: Chronic Qualifiers: Major depression recurrence: recurrent Active/Remission status: currently active Major depression episode severity: moderate Qualified Code(s): F33.1 - Major depressive disorder, recurrent, moderate Cleared for Admission S - Detox or Rehab [facility] Level of Care: Medically Managed Detox Regimen/Protocol: Methadone/Librium Breathalyzer - Breathalyzer Breathalyzer: 0.057 Urine Drug Screen - Test Device Lot number: [id number] Expiration date: 10/28/20 - Control Is test valid?: Yes - Results Drug screen NEGATIVE: No Urine drug screen results: MOP-Opiates Inpatient Rehab Admission - Rehab Decision to Admit Inpatient rehab admission?: No
[2019-01-17] MEDS ORDERED: MENTHOL/PHENOL 1 EACH UD MM PRN (14:10)
[2019-01-17] MEDS ORDERED: NALOXONE HCL 0.4 MG/ML VIAL IM PRN (14:10)
[2019-01-17] MEDS ORDERED: MAGNESIUM CITRATE 300 ML BOTTLE PO PRN (14:10)
[2019-01-17] MEDS ORDERED: cloNIDine HCL 0.1 MG TABLET PO PRN (14:10)
[2019-01-17] MEDS ORDERED: IBUPROFEN 400 MG TABLET (FP) PO PRN (14:10)
[2019-01-17] MEDS ORDERED: MAGNESIUM HYDROX 2400MG/30ML ORAL SUSPENSION 30 ML CUP PO PRN (14:10)
[2019-01-17] MEDS ORDERED: BISMUTH SUBSALICYLATE 524 MG/30 ML UD PO PRN (14:10)
[2019-01-17] MEDS ORDERED: ACETAMINOPHEN 325 MG TABLET (FP) PO PRN (14:10)
[2019-01-17] MEDS ORDERED: chlordiazePOXIDE HCL 10 MG CAPSULE PO PRN (14:10)
[2019-01-17] MEDS ORDERED: MAG HYDROX/AL HYDROX/SIMETH 30 ML UNIT-DOSE CUP PO PRN (14:10)
[2019-01-17] MEDS ORDERED: ONDANSETRON *ODT* 4 MG TABLET SL PRN (14:10)
[2019-01-17] MEDS ORDERED: METHOCARBAMOL 500 MG TABLET PO PRN (14:10)
[2019-01-17] MEDS ORDERED: chlordiazePOXIDE HCL 25 MG CAPSULE PO ONE (15:00)
[2019-01-17] MEDS ORDERED: METHADONE HCL 10 MG TABLET (FOR DETOX USE ONLY) PO ONE (15:00)
--- NOTE | 2019-01-17 15:11 | PN ---
S Progress Note Note: Patient with abnormal EKG on admission, repeat EKG ordered for 01/17 @ 6am.
[2019-01-17] MEDS: INSULIN SLIDING SCALE (NOVOLOG) 1 VIAL SQ SCH (18:26)
[2019-01-17] MEDS: chlordiazePOXIDE HCL 25 MG CAPSULE PO SCH (22:32)
[2019-01-17] MEDS: THIAMINE HCL 100 MG TABLET (FP) PO SCH (22:33)
[2019-01-17] MEDS: MELATONIN 5 MG TABLETS PO PRN (22:35)
--- NOTE | 2019-01-17 23:56 | EKG ---
Test Reason : Blood Pressure : / mmHG Vent. Rate : 099 BPM Atrial Rate : 099 BPM P-R Int : 158 ms QRS Dur : 086 ms QT Int : 376 ms P-R-T Axes : 052 030 073 degrees QTc Int : 482 ms SINUS RHYTHM WITH PREMATURE ATRIAL COMPLEXES NONSPECIFIC T WAVE ABNORMALITY PROLONGED QT ABNORMAL ECG NO PREVIOUS ECGS AVAILABLE Confirmed by YI RAY MD ([id number]) on 01/17/2019 11:56:04 PM Referred By: WILMA URRUTIA Confirmed By:YI RAY MD
[2019-01-18] MEDS: chlordiazePOXIDE HCL 25 MG CAPSULE PO SCH ×3 (05:38→22:35)
[2019-01-18] MEDS: INSULIN SLIDING SCALE (NOVOLOG) 1 VIAL SQ SCH ×3 (07:19→17:35)
[2019-01-18] MEDS ORDERED: METHADONE HCL 5 MG TABLET (FOR DETOX USE ONLY) PO ONE (10:00)
[2019-01-18] MEDS ORDERED: PRENATAL VITAMINS W/ FOLIC ACID TABLET (FP) PO SCH (10:00)
[2019-01-18] MEDS ORDERED: LOSARTAN POTASSIUM 50 MG TABLET (FP) PO SCH (10:00)
[2019-01-18 10:48] LABS: HEMATOCRIT 36.2 % (35.4-49); HEMOGLOBIN 12.1 GM/dL (11.7-16.9); MCH 33.4 pg (25.7-33.7); MCHC 33.6 g/dl (32.0-35.9); MEAN CELL VOLUME 99.6 fl (80-96); MEAN PLT VOLUME 8.7 fl (7.5-11.1); PLATELET COUNT 121 K/MM3 (134-434); RBC 3.64 M/mm3 (4.00-5.60); RDW 14.2 % (11.9-15.9); WHITE BLOOD COUNT 4.6 K/mm3 (4.0-10.0)
[2019-01-18 10:54] LABS: ALBUMIN 3.8 g/dl (3.4-5.0); BILIRUBIN,TOTAL 1.1 mg/dL (0.2-1); BLOOD UREA NITROGEN 22.4 mg/dL (7-18); CREATININE 1.1 mg/dL (0.55-1.3); POTASSIUM 3.3 mmol/L (3.5-5.1); TOT PROT 7.5 g/dl (6.4-8.2)
[2019-01-18] MEDS: ACETAMINOPHEN 325 MG TABLET (FP) PO PRN (10:58)
[2019-01-18] MEDS ORDERED: INSULIN SLIDING SCALE (NOVOLOG) 1 VIAL SQ ONE (11:43)
--- NOTE | 2019-01-18 13:46 | PN ---
[facility] CIWA - CIWA Score Nausea/Vomitin-Mild Nausea/No Vomiting Muscle Tremors: 3 Anxiety: 3 Agitation: 3 Paroxysmal Sweats: 1-Minimal Palms Moist Orientation: 1-Uncertain about Date Tacttile Disturbances: 1-Very Mild Itch/Numbness Auditory Disturbances: 0-None Visual Disturbances: 0-None Headache: 1-Very Mild CIWA-Ar Total Score: 14 BHS COWS - Scale Resting Pulse: 1= CA 81-100 Sweatin= Chills/Flushing Restless Observation: 0= Sits Still Pupil Size: 0= Normal to Room Light Bone or Joint Aches: 1= Mild Discomfort Runny Nose/ Eye Tearin= Nasal Congestion GI Upset > 30mins: 1= Stomach Cramp Tremor Observation of Outstretched Hands: 2= Slight Tremor Visible Yawning Observation: 2= >3x During Session Anxiety or Irritability: 2=Irritable/Anxious Goose Flesh Skin: 3=Piloerection COWS Score: 14 S Progress Note (SOAP) Subjective: tremor sweat patient stated that he is taking oral antidiabetic medication last dose unknown dosage unknown external medication reviewed unable to locate diabetes medication long history of hypertension begin metoprolol 25 mg po daily Objective: 01/18/19 13:47 Vital Signs Temperature 97.8 F 01/18/19 13:15 Pulse Rate 91 H 01/18/19 13:15 Respiratory Rate 18 01/18/19 13:15 Blood Pressure 134/83 01/18/19 13:15 O2 Sat by Pulse Oximetry (%) Laboratory Last Values WBC 4.6 K/mm3 (4.0-10.0) 01/18/19 07:50 RBC 3.64 M/mm3 (4.00-5.60) L 01/18/19 07:50 Hgb 12.1 GM/dL (11.7-16.9) 01/18/19 07:50 Hct 36.2 % (35.4-49) 01/18/19 07:50 MCV 99.6 fl (80-96) H 01/18/19 07:50 MCH 33.4 pg (25.7-33.7) 01/18/19 07:50 MCHC 33.6 g/dl (32.0-35.9) 01/18/19 07:50 RDW 14.2 % (11.9-15.9) D 01/18/19 07:50 Plt Count 121 K/MM3 (134-434) L D 01/18/19 07:50 MPV 8.7 fl (7.5-11.1) 01/18/19 07:50 Sodium 135 mmol/L (136-145) L 01/18/19 07:50 Potassium 3.3 mmol/L (3.5-5.1) L 01/18/19 07:50 Chloride 97 mmol/L (98-107) L 01/18/19 07:50 Carbon Dioxide 28 mmol/L (21-32) 01/18/19 07:50 Anion Gap 9 MMOL/L (8-16) 01/18/19 07:50 BUN 22.4 mg/dL (7-18) H 01/18/19 07:50 Creatinine 1.1 mg/dL (0.55-1.3) 01/18/19 07:50 Est GFR (CKD-EPI)AfAm 80.08 01/18/19 07:50 Est GFR (CKD-EPI)NonAf 69.10 01/18/19 07:50 POC Glucometer 222 UNITS (80-120) 01/18/19 11:23 Random Glucose 200 mg/dL (74-106) H 01/18/19 07:50 Calcium 9.0 mg/dL (8.5-10.1) 01/18/19 07:50 Total Bilirubin 1.1 mg/dL (0.2-1) H 01/18/19 07:50 AST 177 U/L (15-37) H 01/18/19 07:50 ALT 181 U/L (13-61) H 01/18/19 07:50 Alkaline Phosphatase 130 U/L (45-117) H 01/18/19 07:50 Total Protein 7.5 g/dl (6.4-8.2) 01/18/19 07:50 Albumin 3.8 g/dl (3.4-5.0) 01/18/19 07:50 RPR Titer Nonreactive (NONREACTIVE) 01/18/19 07:50 lab noted low K+ patient was taking lasix 20 mg po daily K+ supplement repeat K+ Assessment: 01/18/19 13:50 alcohol and opiate withdrawal sx Plan: continue alcohol detox
[2019-01-18] MEDS ORDERED: metoPROLOL SUCCINATE 25 MG TAB.SR.24H (FP) PO SCH (14:25)
[2019-01-18] MEDS: POTASSIUM CHLORIDE TABS 20 MEQ TABLET.ER (FP) PO SCH ×2 (14:28→22:35)
[2019-01-18] MEDS: MELATONIN 5 MG TABLETS PO PRN (22:35)
[2019-01-18] MEDS: THIAMINE HCL 100 MG TABLET (FP) PO SCH (22:35)
[2019-01-19] MEDS ORDERED: chlordiazePOXIDE 5 MG CAPSULE PO SCH (05:00)
[2019-01-19] MEDS: INSULIN SLIDING SCALE (NOVOLOG) 1 VIAL SQ SCH (07:29)
[2019-01-19] MEDS: ACETAMINOPHEN 325 MG TABLET (FP) PO PRN (09:24)
[2019-01-19 09:57] VITALS: BP 162/82; PULSE 102; TEMP 98.2
[2019-01-19] MEDS ORDERED: METHADONE HCL 10 MG TABLET (FOR DETOX USE ONLY) PO ONE (10:00)
--- NOTE | 2019-01-19 11:39 | DS ---
[facility] Detox Discharge Summary Admission Date: 01/17/19 Discharge Date: 01/19/19 - History Present History: Alcohol Dependence, Opioid Dependence Additional Comments: 68 years old male admitted on 01/17/19 for acute alcohol and opiate withdrawal sx management alert oriented x 3 denies headache S1S2 long history of hypertension treated with lorsartan discuss risks of bp elevation and adherence with antihypertensant patient insists to leave the detox unit that "has to go back to work" patient prefers to hold on to his job than to complete the detox regimen strong recommend the patient to go to [facility] for aftercare followup with medication list and lab report - Physical Exam Results Vital Signs: Vital Signs Temperature 98.2 F 01/19/19 09:57 Pulse Rate 102 H 01/19/19 09:57 Respiratory Rate 17 01/19/19 09:57 Blood Pressure 162/82 01/19/19 09:57 O2 Sat by Pulse Oximetry (%) Pertinent Admission Physical Exam Findings: alcohol and opiate withdrawal sx Laboratory Last Values WBC 4.6 K/mm3 (4.0-10.0) 01/18/19 07:50 RBC 3.64 M/mm3 (4.00-5.60) L 01/18/19 07:50 Hgb 12.1 GM/dL (11.7-16.9) 01/18/19 07:50 Hct 36.2 % (35.4-49) 01/18/19 07:50 MCV 99.6 fl (80-96) H 01/18/19 07:50 MCH 33.4 pg (25.7-33.7) 01/18/19 07:50 MCHC 33.6 g/dl (32.0-35.9) 01/18/19 07:50 RDW 14.2 % (11.9-15.9) D 01/18/19 07:50 Plt Count 121 K/MM3 (134-434) L D 01/18/19 07:50 MPV 8.7 fl (7.5-11.1) 01/18/19 07:50 Sodium 135 mmol/L (136-145) L 01/18/19 07:50 Potassium 3.3 mmol/L (3.5-5.1) L 01/18/19 07:50 Chloride 97 mmol/L (98-107) L 01/18/19 07:50 Carbon Dioxide 28 mmol/L (21-32) 01/18/19 07:50 Anion Gap 9 MMOL/L (8-16) 01/18/19 07:50 BUN 22.4 mg/dL (7-18) H 01/18/19 07:50 Creatinine 1.1 mg/dL (0.55-1.3) 01/18/19 07:50 Est GFR (CKD-EPI)AfAm 80.08 01/18/19 07:50 Est GFR (CKD-EPI)NonAf 69.10 01/18/19 07:50 POC Glucometer 159 UNITS (80-120) 01/19/19 07:09 Random Glucose 200 mg/dL (74-106) H 01/18/19 07:50 Calcium 9.0 mg/dL (8.5-10.1) 01/18/19 07:50 Total Bilirubin 1.1 mg/dL (0.2-1) H 01/18/19 07:50 AST 177 U/L (15-37) H 01/18/19 07:50 ALT 181 U/L (13-61) H 01/18/19 07:50 Alkaline Phosphatase 130 U/L (45-117) H 01/18/19 07:50 Total Protein 7.5 g/dl (6.4-8.2) 01/18/19 07:50 Albumin 3.8 g/dl (3.4-5.0) 01/18/19 07:50 RPR Titer Nonreactive (NONREACTIVE) 01/18/19 07:50 lab noted low K+ 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 - Treatment Hospital Course: Detox Protocol Followed, Responded well Patient has Accepted a Rehab Referral to: [facility] - Medication Discharge Medications: Ambulatory Orders Fluoxetine HCl [Prozac -] 40 mg PO DAILY 07/04/18 Losartan Potassium [Cozaar] 100 mg PO DAILY 07/04/18 Zolpidem Tartrate [Ambien] 10 mg PO HS 07/04/18 - Diagnosis (1) Opioid dependence with withdrawal Status: Acute (2) Alcohol dependence with uncomplicated withdrawal Status: Acute (3) Substance induced mood disorder Status: Suspected (4) Hepatitis C Status: Chronic Qualifiers: Viral hepatitis chronicity: chronic Hepatic coma status: without hepatic coma Qualified Code(s): B18.2 - Chronic viral hepatitis C (5) Hypertension Status: Chronic Qualifiers: Hypertension type: essential hypertension Qualified Code(s): I10 - Essential (primary) hypertension (6) Hypokalemia due to inadequate potassium intake Status: Suspected - AMA Did Patient Leave Against Medical Advice: Yes
[2019-01-20] MEDS ORDERED: chlordiazePOXIDE HCL 10 MG CAPSULE PO PRN
[2019-01-20] MEDS ORDERED: chlordiazePOXIDE HCL 10 MG CAPSULE PO SCH (05:00)
[2019-01-20] MEDS ORDERED: METHADONE HCL 5 MG TABLET (FOR DETOX USE ONLY) PO ONE (06:00)
[2019-01-21] MEDS ORDERED: chlordiazePOXIDE HCL 10 MG CAPSULE PO ONE (05:00)
== END 2019-01-19 09:25 | disposition left against medical advice (07) | DRG 894 ==
LOC: YASAS 12:41 → Y3N 14:35
PROVIDERS: ADMIT Surgery; ATTEND Surgery
PROC: HZ2ZZZZ Detoxification Services for Substance Abuse Treatment (ICD-10-PCS; principal; 2019-01-17)
DX: F11.23 Opioid dependence with withdrawal (principal); F33.1 Major depressive disorder, recurrent, moderate; F10.230 Alcohol dependence with withdrawal, uncomplicated; I10 Essential (primary) hypertension; B18.2 Chronic viral hepatitis C; E87.6 Hypokalemia; E11.9 Type 2 diabetes mellitus without complications; M54.5 Low back pain; G89.29 Other chronic pain; Z87.891 Personal history of nicotine dependence; Z79.84 Long term (current) use of oral hypoglycemic drugs
CPT/HCPCS: 36415; 80053; 82962; 85027; 86480; 86593; 93005; 93010

== ENCOUNTER 2020-01-05 08:09 | Emergency (ER) | payer OTHER ==
--- NOTE | 2020-01-05 08:17 | PDOC ---
Rapid Medical Evaluation Time Seen by Provider: 01/05/20 08:11 Medical Evaluation: Allergies Allergy/AdvReac Type Severity Reaction Status Date / Time No Known Allergies Allergy Verified 12/22/18 08:41 01/05/20 08:12 CC: worsening low back pain causing him to fall, sees a pain mx md and has received injections with no improvement, also is an alcoholic, requesing "sx" Exam: alert, + alcohol on breath, vss, no vertebral, rt sciatica tenderness, 1+ edema natalia LE Plan: lumbar xray 01/05/20 08:18 Discharge Disposition - Diagnosis Sciatica - Referrals - Patient Instructions - Post Discharge Activity
[2020-01-05 08:18] VITALS: TEMP 98.9; BMI 40.3
--- NOTE | 2020-01-05 08:26 | PDOC ---
History of Present Illness - General Chief Complaint: Pain, Acute Stated Complaint: ALCOHOL INTOXICATION Time Seen by Provider: 01/05/20 08:11 History Source: Patient Exam Limitations: No Limitations - History of Present Illness Initial Comments: 01/05/20 08:26 69yM w PMHx natalia sciatica, etoh abuse, DM presenting w worsening BLE shooting pains for the last 10 years not relieved w beer/liquor. Last drank 3 beers this morning. Last f/u w pain dr years ago. Also complains of increased urinary frequency for the past few months. Denies bowel incontinence, leg weakness, abd/back pain. Past History - Medical History Allergies/Adverse Reactions: Allergies Allergy/AdvReac Type Severity Reaction Status Date / Time No Known Allergies Allergy Verified 12/22/18 08:41 Home Medications: Ambulatory Orders Fluoxetine HCl [Prozac -] 40 mg PO DAILY 07/04/18 Losartan Potassium [Cozaar] 100 mg PO DAILY 07/04/18 Zolpidem Tartrate [Ambien] 10 mg PO HS 07/04/18 Losartan Potassium [Cozaar -] 100 mg PO DAILY #30 tablet 01/19/19 Metoprolol Succinate [Toprol XL -] 25 mg PO DAILY #30 tab.sr.24h 01/19/19 Potassium Chloride [K-Dur -] 20 meq PO BID #10 tablet.er 01/19/19 Naproxen 500 mg PO BID 10 Days #20 tablet 01/05/20 Anemia: No Asthma: No Cancer: No Cardiac Disorders: No CVA: No COPD: No CHF: No Dementia: No Diabetes: Yes (Type II on metformin) GI Disorders: No Disorders: No HTN: Yes (on meds.) Hypercholesterolemia: No Kidney Stones: No Liver Disease: Yes (hepatitis c) Seizures: No Thyroid Disease: No - Surgical History Abdominal Surgery: No Appendectomy: No Cardiac Surgery: No Cholecystectomy: No Lung Surgery: No Neurologic Surgery: No Orthopedic Surgery: No - Reproductive History Testicular Surgery: No - Immunization History Immunization Up to Date: No - Psycho-Social/Smoking History Smoking History: Current every day smoker Have you smoked in the past 12 months: No If you are a former smoker, when did you quit?: 30 yrs ago Information on smoking cessation initiated: No 'Breaking Loose' booklet given: 12/22/18 - Substance Abuse Hx (Audit-C & DAST Scrn) How often the patient has a drink containing alcohol: 2-3 times / week Number of drinks the patient has on a typical day: 1 or 2 How often the patient has six or more drinks on one occasion: Daily or almost daily Score: In Men: 4 or > Positive; In Women: 3 or > Positive: 7 Screen Result (Pos requires Nsg. Audit-10AR): Positive In the last yr the pt used illegal drug/Rx for NonMed reason: No Score: Yes response is considered Positive: 0 Screen Result (Positive result requires Nsg. DAST-10): Negative Review of Systems - Review of Systems Constitutional: No: Chills, Fever HEENTM: No: Eye Pain, Ear Discharge Respiratory: No: Cough, Shortness of Breath Cardiac (ROS): No: Chest Pain, Lightheadedness ABD/GI: No: Abdominal Distended, Nausea, Vomiting : No: Burning, Dysuria Musculoskeletal: Yes: Back Pain. No: Muscle Weakness Integumentary: No: Bruising, Dryness Neurological: No: Headache, Seizure Psychiatric: No: Anxiety, Depression Endocrine: No: Intolerance to Cold, Intolerance to Heat Hematologic/Lymphatic: No: Anemia, Blood Clots *Physical Exam - Vital Signs Last Vital Signs Temp Pulse Resp BP Pulse Ox 98.9 F 98 H 16 138/77 97 01/05/20 08:12 01/05/20 08:12 01/05/20 08:12 01/05/20 08:12 01/05/20 08:12 - Physical Exam General Appearance: Yes: Nourished, Appropriately Dressed, Moderate Distress HEENT: positive: EOMI, SAMPSON, Normal Voice. negative: Scleral Icterus (R), Scleral Icterus (L) Neck: positive: Supple. negative: Tender, Rigid Respiratory/Chest: positive: Lungs Clear, Normal Breath Sounds. negative: Chest Tender, Respiratory Distress Cardiovascular: positive: Regular Rhythm, Regular Rate, S1, S2. negative: Edema, Murmur Vascular Pulses: Dorsalis-Pedis (R): 2+, Doralis-Pedis (L): 2+ Gastrointestinal/Abdominal: positive: Normal Bowel Sounds, Soft, Distended (mild). negative: Tender, Organomegaly Extremity: positive: Pedal Edema (1+ pitting natalia to knees) Integumentary: positive: Normal Color, Warm Neurologic: positive: fire chief II-XII NML intact, Fully Oriented, Alert, Normal Response, Motor Strength 5/5 (BLE), Responsive (BLE), Numbness (mildly reduced sensation to touch BLE). negative: Normal Mood/Affect (slurring words on inital exam), Confused, Disoriented ED Treatment Course - LABORATORY CBC & Chemistry Diagram: 01/05/20 09:50 01/05/20 09:50 Medical Decision Making - Medical Decision Making 01/05/20 12:31 Lumbar, pelvis XR - no acute fx/dislocation --- 69yM w PMHx natalia sciatica, etoh abuse, DM presenting w worsening BLE shooting pains for the past 10yrs Pain likely d/t sciatica/radiculopathy. No acute fx/dislocation on XR. Low concern for cauda equina (no urinary/bowel incontinence or saddle anesthesia). Pain improved w toradol. Given 1L NS Pt AOx4, non slurred speech, stable gait w cane DC home w naproxen, neurosx, ortho referrals Discharge - Discharge Information Problems reviewed: Yes Clinical Impression/Diagnosis: Lumbar radiculopathy Sciatica Qualifiers: Laterality: bilateral Qualified Code(s): M54.31 - Sciatica, right side Alcohol intoxication Qualifiers: Complication of substance-induced condition: uncomplicated Qualified Code(s): F10.920 - Alcohol use, unspecified with intoxication, uncomplicated Condition: Improved Disposition: HOME - Additional Discharge Information Prescriptions: Naproxen 500 mg PO BID 10 Days #20 tablet - Follow up/Referral Referrals: Panchito Candelaria DO [Staff Physician] - Patrice Ruiz MD [Primary Care Provider] - Jesus Sprague MD, FAANS [Staff Physician] - - Patient Discharge Instructions Patient Printed Discharge Instructions: DI for Low Back Pain Additional Instructions: Your x-rays did not show any fracture of dislocation. You were given pain medication. Take the prescribed naproxen as directed if you have pain Stop drinking alcohol Follow up with the pain Dr Candelaria and neurosurgery Dr Sprague - Post Discharge Activity
[2020-01-05] MEDS ORDERED: SODIUM CHLORIDE 0.9% 500 ML INFUS.BAG IV ONE (09:23)
[2020-01-05 10:19] LABS: BASO % 0.4 % (0-2.0); EOS % 3.5 % (0-4.5); HEMATOCRIT 31.3 % (35.4-49); HEMOGLOBIN 10.1 GM/dL (11.7-16.9); LYMPH % 37.2 % (8-40); MCH 28.6 pg (25.7-33.7); MCHC 32.4 g/dl (32.0-35.9); MEAN CELL VOLUME 88.2 fl (80-96); MEAN PLT VOLUME 8.2 fl (7.5-11.1); MONO % 10.7 % (3.8-10.2); NEUT % 48.2 % (42.8-82.8); PLATELET COUNT 156 K/MM3 (134-434); RBC 3.54 M/mm3 (4.00-5.60); RDW 17.8 % (11.9-15.9); WHITE BLOOD COUNT 6.4 K/mm3 (4.0-10.0)
--- NOTE | 2020-01-05 10:39 | PDOC ---
Attending Attestation - Resident Resident Name: Víctor Cordon - ED Attending Attestation I have performed the following: I have examined & evaluated the patient, The case was reviewed & discussed with the resident, I agree w/resident's findings & plan - HPI HPI: 01/05/20 10:35 69-year-old male with history of diabetes on metformin, chronic sciatica and lumbar radiculopathy for years with progressive functional decline despite evaluation with pain management and local injection treatments as recently as last week. Patient has been self-medicating with alcohol, brought in by signs for evaluation of worsening right greater than left sciatica/radicular pain and progressive alcohol intake. Denies any recent falls or injuries, denies any motor or sensory deficit, reports urinary urgency and frequency but denies any incontinence or bowel issues. No fevers or chills or night sweats or weight loss. - Physicial Exam PE: 01/05/20 10:36 Afebrile, vital signs stable Alert, conversant, lying in stretcher Exam is atraumatic Heart is regular, lungs are clear Abdomen benign, no bladder distention 5 out of 5 flexion/extension of bilateral hips/knees/ankles/toes, 1+ distal pulses bilaterally, sensation subjectively decreased right worse than left range of motion is slightly limited by pain particularly with Right hip flexion. - Medical Decision Making 01/05/20 10:37 69-year-old male with acute on chronic right greater than left sciatic/radicular leg pain. No injuries or other red flags, self treating with increased alcohol intake. Motor intact, but has difficulty ambulating. Check labs for liver or kidney injury spine xray pain control - if improves and ambulatory, consider spine surgery referral and second opinion for pain management. Otherwise, may need admission for pain control and advanced imaging or need for operative intervention/urgent PT Discharge - Discharge Information Problems reviewed: Yes Clinical Impression/Diagnosis: Lumbar radiculopathy Sciatica Qualifiers: Laterality: bilateral Qualified Code(s): M54.31 - Sciatica, right side Condition: Fair - Follow up/Referral Referrals: Jesus Sprague MD, FAANS [Staff Physician] - Panchito Candelaria DO [Staff Physician] - Patrice Ruiz MD [Primary Care Provider] - - Patient Discharge Instructions Additional Instructions: Follow up with the pain Dr Candelaria and neurosurgery Dr Sprague - Post Discharge Activity
[2020-01-05 10:42] LABS: ALBUMIN 3.4 g/dl (3.4-5.0); BILIRUBIN,TOTAL 0.7 mg/dL (0.2-1); CALCIUM 8.4 mg/dL (8.5-10.1); CREATININE 0.9 mg/dL (0.55-1.3); POTASSIUM 3.6 mmol/L (3.5-5.1); TOT PROT 6.9 g/dl (6.4-8.2)
[2020-01-05] MEDS ORDERED: KETOROLAC TROMETHAMINE 30 MG/1 ML VIAL IVPUSH ONE (10:53)
[2020-01-05] MEDS ORDERED: KETOROLAC TROMETHAMINE 30 MG/1 ML VIAL ONE (11:02)
[2020-01-05 13:22] VITALS: BP 135/73; PULSE 95
== END 2020-01-05 13:42 | disposition home or self-care (01) ==
LOC: JER 08:09
PROC: 3E0233Z Introduction of Anti-inflammatory into Muscle, Percutaneous Approach (ICD-10-PCS; principal; 2020-01-05)
DX: M54.16 Radiculopathy, lumbar region (principal); M54.31 Sciatica, right side; F10.920 Alcohol use, unspecified with intoxication, uncomplicated
CPT/HCPCS: 36415; 72100-TC-FY; 73523-TC-FY; 80053; 85025; 99285-25

== ENCOUNTER 2020-06-08 14:00 | Inpatient (IN) | payer OTHER ==
[2020-06-08] MEDS ORDERED: MAGNESIUM CITRATE 300 ML BOTTLE PO PRN (15:37)
[2020-06-08] MEDS ORDERED: MAG HYDROX/AL HYDROX/SIMETH 30 ML UNIT-DOSE CUP PO PRN (15:37)
[2020-06-08] MEDS ORDERED: chlordiazePOXIDE HCL 25 MG CAPSULE PO PRN (15:37)
[2020-06-08] MEDS ORDERED: MENTHOL/PHENOL 1 EACH UD MM PRN (15:37)
[2020-06-08] MEDS ORDERED: BISMUTH SUBSALICYLATE 524 MG/30 ML PO PRN (15:37)
[2020-06-08] MEDS ORDERED: ONDANSETRON *ODT* 4 MG TABLET SL PRN (15:37)
[2020-06-08] MEDS ORDERED: MAGNESIUM HYDROX 2400MG/30ML ORAL SUSPENSION 30 ML CUP PO PRN (15:37)
[2020-06-08] MEDS ORDERED: ACETAMINOPHEN 325 MG TABLET (FP) PO PRN ×2 (15:37)
[2020-06-08 15:52] VITALS: BMI 27.8
[2020-06-08] MEDS ORDERED: IBUPROFEN 400 MG TABLET (FP) PO ONE ×2 (18:06→19:02)
[2020-06-08] MEDS ORDERED: chlordiazePOXIDE HCL 25 MG CAPSULE ONE (18:57)
[2020-06-08] MEDS: chlordiazePOXIDE HCL 25 MG CAPSULE PO SCH ×2 (19:04→22:14)
[2020-06-08] MEDS: LOSARTAN POTASSIUM 50 MG TABLET PO SCH (20:43)
[2020-06-08] MEDS: MELATONIN 5 MG TABLETS PO SCH (22:14)
[2020-06-08] MEDS: THIAMINE HCL 100 MG TABLET (FP) PO SCH (22:14)
[2020-06-08] MEDS: IBUPROFEN 600 MG TABLET (FP) PO PRN (22:16)
[2020-06-09] MEDS: metFORMIN HCL 500 MG TABLET (FP) PO SCH (06:08)
[2020-06-09] MEDS: chlordiazePOXIDE HCL 25 MG CAPSULE PO SCH ×4 (06:08→22:27)
[2020-06-09] MEDS: PRENATAL VITAMINS W/ FOLIC ACID TABLET (FP) PO SCH (10:16)
[2020-06-09] MEDS: LOSARTAN POTASSIUM 50 MG TABLET PO SCH (10:16)
[2020-06-09] MEDS: METHOCARBAMOL 500 MG TABLET PO PRN (10:17)
[2020-06-09 11:39] LABS: HEMATOCRIT 29.6 % (35.4-49); HEMOGLOBIN 9.6 GM/dL (11.7-16.9); MCH 27.6 pg (25.7-33.7); MCHC 32.3 g/dl (32.0-35.9); MEAN CELL VOLUME 85.4 fl (80-96); MEAN PLT VOLUME 9.3 fl (7.5-11.1); PLATELET COUNT 108 K/MM3 (134-434); RBC 3.47 M/mm3 (4.00-5.60); RDW 16.9 % (11.9-15.9); WHITE BLOOD COUNT 4.7 K/mm3 (4.0-10.0)
[2020-06-09 11:41] LABS: CALCIUM 8.5 mg/dL (8.5-10.1)
[2020-06-09 11:42] LABS: ALBUMIN 3.1 g/dl (3.4-5.0); BLOOD UREA NITROGEN 17.9 mg/dL (7-18)
[2020-06-09 11:45] LABS: CREATININE 0.8 mg/dL (0.55-1.3)
[2020-06-09 11:47] LABS: BILIRUBIN,TOTAL 1.4 mg/dL (0.2-1); TOT PROT 6.3 g/dl (6.4-8.2)
[2020-06-09 12:34] LABS: HIV INTERPRETATION NEGATIVE (NEGATIVE)
[2020-06-09] MEDS: IBUPROFEN 600 MG TABLET (FP) PO PRN ×2 (14:35→22:30)
[2020-06-09 18:06] LABS: PH,URINE 6.5 (5.0-8.0); URINE APPEARANCE CLEAR; URINE BILIRUBIN NEGATIVE (NEGATIVE); URINE COLOR YELLOW; URINE GLUCOSE (UA) TRACE (NEGATIVE); URINE KETONE NEGATIVE (NEGATIVE); URINE LEUK ESTERASE NEGATIVE (NEGATIVE); URINE NITRITE NEGATIVE (NEGATIVE); URINE PROTEIN NEGATIVE (NEGATIVE)
[2020-06-09] MEDS: THIAMINE HCL 100 MG TABLET (FP) PO SCH (22:27)
[2020-06-09] MEDS: SUVOREXANT 10 MG TABLET PO PRN (22:28)
[2020-06-09] MEDS: MELATONIN 5 MG TABLETS PO SCH (22:29)
[2020-06-10] MEDS: metFORMIN HCL 500 MG TABLET (FP) PO SCH (06:29)
[2020-06-10] MEDS: chlordiazePOXIDE HCL 25 MG CAPSULE PO SCH ×4 (06:29→22:19)
[2020-06-10] MEDS: IBUPROFEN 600 MG TABLET (FP) PO PRN ×3 (06:31→19:27)
[2020-06-10] MEDS: LOSARTAN POTASSIUM 50 MG TABLET PO SCH (10:10)
[2020-06-10] MEDS: PRENATAL VITAMINS W/ FOLIC ACID TABLET (FP) PO SCH (10:10)
[2020-06-10] MEDS: METHOCARBAMOL 500 MG TABLET PO PRN (10:11)
[2020-06-10] MEDS: MELATONIN 5 MG TABLETS PO SCH (22:19)
[2020-06-10] MEDS: THIAMINE HCL 100 MG TABLET (FP) PO SCH (22:19)
[2020-06-10] MEDS: SUVOREXANT 10 MG TABLET PO PRN (22:20)
[2020-06-11] MEDS ORDERED: chlordiazePOXIDE HCL 10 MG CAPSULE PO PRN
[2020-06-11] MEDS: IBUPROFEN 600 MG TABLET (FP) PO PRN ×3 (05:53→22:15)
[2020-06-11] MEDS: chlordiazePOXIDE HCL 10 MG CAPSULE PO SCH ×4 (05:53→22:16)
[2020-06-11] MEDS: metFORMIN HCL 500 MG TABLET (FP) PO SCH (06:38)
[2020-06-11] MEDS: LOSARTAN POTASSIUM 50 MG TABLET PO SCH (10:16)
[2020-06-11] MEDS: PRENATAL VITAMINS W/ FOLIC ACID TABLET (FP) PO SCH (10:16)
[2020-06-11] MEDS: METHOCARBAMOL 500 MG TABLET PO PRN ×2 (10:16→17:30)
[2020-06-11] MEDS: hydrOXYzine PAMOATE 25 MG CAPSULE (FP) PO PRN ×2 (14:36→22:16)
[2020-06-11] MEDS: MELATONIN 5 MG TABLETS PO SCH (22:15)
[2020-06-11] MEDS: SUVOREXANT 10 MG TABLET PO PRN (22:15)
[2020-06-11] MEDS: THIAMINE HCL 100 MG TABLET (FP) PO SCH (22:16)
[2020-06-12] MEDS ORDERED: chlordiazePOXIDE HCL 10 MG CAPSULE PO SCH (05:00)
[2020-06-12] MEDS: IBUPROFEN 600 MG TABLET (FP) PO PRN ×3 (06:13→22:07)
[2020-06-12] MEDS: metFORMIN HCL 500 MG TABLET (FP) PO SCH (07:08)
[2020-06-12] MEDS: PRENATAL VITAMINS W/ FOLIC ACID TABLET (FP) PO SCH (10:11)
[2020-06-12] MEDS: LOSARTAN POTASSIUM 50 MG TABLET PO SCH (10:11)
[2020-06-12] MEDS: hydrOXYzine PAMOATE 25 MG CAPSULE (FP) PO PRN (10:11)
[2020-06-12] MEDS ORDERED: DOCUSATE SODIUM 100 MG CAPSULE (FP) PO PRN (13:50)
[2020-06-12] MEDS: HYDROCHLOROTHIAZIDE 25 MG TABLET (FP) PO SCH (14:56)
[2020-06-12] MEDS: metoPROLOL SUCCINATE 25 MG TAB.SR.24H (FP) PO SCH (14:56)
[2020-06-12] MEDS: FERROUS SO4 325 MG TABLET (FP) PO SCH (14:56)
[2020-06-12] MEDS ORDERED: METOPROLOL TARTRATE 25 MG TABLET (FP) PO ONE (15:47)
[2020-06-12] MEDS ORDERED: LORazepam 0.5 MG TABLET PO ONE (17:00)
[2020-06-12] MEDS ORDERED: SENNOSIDES 8.6MG TABLET (FP) PO ONE (22:00)
[2020-06-12] MEDS: THIAMINE HCL 100 MG TABLET (FP) PO SCH (22:05)
[2020-06-12] MEDS: MELATONIN 5 MG TABLETS PO SCH (22:05)
[2020-06-12] MEDS: SUVOREXANT 10 MG TABLET PO PRN (22:07)
[2020-06-13] MEDS ORDERED: chlordiazePOXIDE HCL 10 MG CAPSULE PO ONE (05:00)
[2020-06-13] MEDS ORDERED: LORazepam 0.5 MG TABLET PO ONE (05:00)
[2020-06-13] MEDS: metFORMIN HCL 500 MG TABLET (FP) PO SCH (06:18)
[2020-06-13] MEDS: IBUPROFEN 600 MG TABLET (FP) PO PRN ×2 (09:04→15:29)
[2020-06-13] MEDS: PRENATAL VITAMINS W/ FOLIC ACID TABLET (FP) PO SCH (09:10)
[2020-06-13] MEDS: FERROUS SO4 325 MG TABLET (FP) PO SCH (09:10)
[2020-06-13] MEDS: metoPROLOL SUCCINATE 25 MG TAB.SR.24H (FP) PO SCH (09:10)
[2020-06-13] MEDS: LOSARTAN POTASSIUM 50 MG TABLET PO SCH (09:10)
[2020-06-13] MEDS: HYDROCHLOROTHIAZIDE 25 MG TABLET (FP) PO SCH (09:10)
[2020-06-13] MEDS: METHOCARBAMOL 500 MG TABLET PO PRN (15:29)
[2020-06-13] MEDS: THIAMINE HCL 100 MG TABLET (FP) PO SCH (22:09)
[2020-06-13] MEDS: MELATONIN 5 MG TABLETS PO SCH (22:11)
[2020-06-13] MEDS: SUVOREXANT 10 MG TABLET PO PRN (22:11)
[2020-06-14] MEDS ORDERED: LORazepam 0.5 MG TABLET PO ONE (05:00)
[2020-06-14] MEDS: metFORMIN HCL 500 MG TABLET (FP) PO SCH (06:02)
[2020-06-14] MEDS ORDERED: INSULIN SLIDING SCALE (NOVOLOG) 1 VIAL SQ ONE (06:16)
[2020-06-14 07:15] VITALS: BP 145/75; PULSE 78; TEMP 98.4
[2020-06-14] MEDS: PRENATAL VITAMINS W/ FOLIC ACID TABLET (FP) PO SCH (09:00)
[2020-06-14] MEDS: LOSARTAN POTASSIUM 50 MG TABLET PO SCH (09:01)
[2020-06-14] MEDS: FERROUS SO4 325 MG TABLET (FP) PO SCH (09:01)
[2020-06-14] MEDS: IBUPROFEN 600 MG TABLET (FP) PO PRN (09:01)
[2020-06-14] MEDS: HYDROCHLOROTHIAZIDE 25 MG TABLET (FP) PO SCH (09:01)
[2020-06-14] MEDS: metoPROLOL SUCCINATE 25 MG TAB.SR.24H (FP) PO SCH (09:01)
== END 2020-06-14 11:35 | disposition other institution (70) | DRG 897 ==
LOC: YASAS 14:00 → Y3N 16:56
PROVIDERS: ADMIT Allergy & Immunology; ATTEND Allergy & Immunology
PROC: HZ2ZZZZ Detoxification Services for Substance Abuse Treatment (ICD-10-PCS; principal; 2020-06-08)
DX: F10.230 Alcohol dependence with withdrawal, uncomplicated (principal); F19.280 Other psychoactive substance dependence with psychoactive substance-induced anxiety disorder; F33.1 Major depressive disorder, recurrent, moderate; F10.220 Alcohol dependence with intoxication, uncomplicated; F10.280 Alcohol dependence with alcohol-induced anxiety disorder; I10 Essential (primary) hypertension; E11.9 Type 2 diabetes mellitus without complications; R74.01 Elevation of levels of liver transaminase levels; B18.2 Chronic viral hepatitis C; M54.42 Lumbago with sciatica, left side; M54.41 Lumbago with sciatica, right side; M54.16 Radiculopathy, lumbar region; G89.29 Other chronic pain; G62.9 Polyneuropathy, unspecified; R26.2 Difficulty in walking, not elsewhere classified; Z99.89 Dependence on other enabling machines and devices; Z87.891 Personal history of nicotine dependence; Z79.84 Long term (current) use of oral hypoglycemic drugs
CPT/HCPCS: 36415; 80053; 81003; 82962; 85027; 86593; 86780; 87389; 93005; 93010; C9803; U0003